=== PATIENT | male | born 1985 | race Asian ===

== ENCOUNTER 2016-10-28 10:51 | Emergency (ER) | payer BC ==
[~2016-10-28] VITALS: Ht 170.2 cm; Wt 78.3 kg
[~2016-10-28 10:51] MED LIST: NTRS PO
[2016-10-28 10:57] VITALS: TEMP 36.2; Ht 170.2 cm; Wt 78.3 kg
[2016-10-28] MEDS ORDERED: ONDANSETRON 4MG OD TAB PO STA (11:36)
[2016-10-28] MEDS ORDERED: LIDOCAINE/EPINEPH/TETRACAINE 1 EA SYR EXT STA (11:36)
[2016-10-28] MEDS ORDERED: NORCO 5/325MG HOME PACK PO ONE (11:45)
[2016-10-28] MEDS ORDERED: HYDROCODONE/ACETAMOPHEN 5/325MG TAB PO ONE (12:00)
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
[2016-10-28] MEDS ORDERED: DIPHTHERIA/TETANUS/PERTUSSIS 0.5 ML SYR/VIAL IM. ONE (12:45)
[2016-10-28] MEDS ORDERED: HYDR-5688 PO (13:29)
[2016-10-28 13:39] VITALS: BP 104/64; PULSE 50; O2SAT 98
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
== END 2016-10-28 13:46 | disposition home or self-care (01) ==
LOC: C.EDB 10:54 → C.EDC 13:46
DX: S81.812A Laceration without foreign body, left lower leg, initial encounter (principal); S09.90XA Unspecified injury of head, initial encounter; V13.0XXA Pedal cycle driver injured in collision with car, pick-up truck or van in nontraffic accident, initial encounter; Z23 Encounter for immunization

== ENCOUNTER → 2016-11-02 | Outpatient (CLI) | payer BC ==
[~2016-11-02] MED LIST changes: +HYDR-5688 PO; -NTRS PO
--- NOTE | 2016-11-02 11:58 | DIAGNOSTIC IMAGING REPORT ---
RIGHT HIP UNILATERAL 2 VIEWS CLINICAL HISTORY: RIGHT HIP PAIN Right pain COMPARISON: None. DISCUSSION: Generalized moderate degenerative change right hip. Moderate sclerosis of the acetabular margin. Mild sclerosis of the femoral head articular services. No evidence for acetabular protrusion. There is no evidence for soft tissue swelling. IMPRESSION: Moderate to rather significant degenerative change right femoral head and associated acetabulum Electronically signed by: Dixon Rahman M.D. 11/02/2016 11:57 AM Dictated Date/Time: 11/02/2016 11:56 AM
== END | disposition home or self-care (01) ==
LOC: C.RAD1850 11:44
PROVIDERS: ATTEND Family Medicine
DX: M67.98 Unspecified disorder of synovium and tendon, other site (principal)

== ENCOUNTER 2017-11-06 17:34 | Emergency (ER) | payer BC, OTHER ==
[~2017-11-06] VITALS: Ht 170.2 cm; Wt 81.9 kg
[2017-11-06 17:50] VITALS: TEMP 36.8; Ht 170.2 cm; Wt 81.9 kg
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
[2017-11-06 19:00] VITALS: BP 114/71; PULSE 62; O2SAT 98
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
== END 2017-11-06 19:00 | disposition home or self-care (01) ==
LOC: C.EDB 17:36 → C.EDD 19:00
DX: S06.0X9A Concussion with loss of consciousness of unspecified duration, initial encounter (principal); X58.XXXA Exposure to other specified factors, initial encounter; Z88.8 Allergy status to other drugs, medicaments and biological substances

== ENCOUNTER 2021-11-27 15:10 | Observation (INO) ==
[2021-11-27 15:50] LABS: Basophils # (auto) 0.03 K/uL (0-0.2); Basophils % (auto) 0.6 %; Eosinophils # (auto) 0.09 K/uL (0-0.5); Eosinophils % (auto) 1.9 %; Hematocrit (blood only) 42.6 % (42-52); Hemoglobin 15.2 g/dL (14.0-18.0); Immature Granulocytes # (auto) 0.01 K/uL (0.00-0.02); Immature Granulocytes % (auto) 0.2 %; Lymphocytes # (auto) 1.45 K/uL (1.2-3.4); Lymphocytes % (auto) 30.8 %; Mean Corpuscular Hemoglobin 31.9 pg (25-34); Mean Corpuscular Hgb Conc 35.7 g/dL (32-36); Mean Corpuscular Volume 89.5 fL (80-100); Mean Platelet Volume 9.7 fL (7.4-10.4); Monocytes # (auto) 0.33 K/uL (0.11-0.59); Neutrophils % (auto) 59.5 %; Platelet Count 237 K/uL (130-400); RDW Coefficient of Variation 12.5 % (11.5-14.5); RDW Standard Deviation 40.9 fL (36.4-46.3); Red Blood Count 4.76 M/uL (4.7-6.1); White Blood Count 4.71 K/uL (4.8-10.8)
[2021-11-27 15:54] LABS: iSTAT Creatinine 0.8 mg/dl (0.6-1.3); iSTAT Hemoglobin 15.3 g/dl (14.0-18.0); iSTAT Ionized Calcium 1.21 mmol/l (1.12-1.32); iSTAT Potassium 3.5 mmol/L (3.3-5.0)
--- NOTE | 2021-11-27 16:04 | Emergency Department Note ---
History of Present Illness General Chief Complaint: Referred by Doctor Stated Complaint: REF BY DOC TO BE REEVALUATED FROM APPENDACITIS Time Seen by Provider: 11/27/21 15:15 History of Present Illness Provider Complaint: abdominal pain Onset (ago): 2 day(s) Pain Consistency: intermittent Location: RLQ Migration to: no migration Severity: mild Maximum Pain Intensity: 2 Current Pain Intensity: 2 Quality: + cramping, + stabbing, + aching, + fullness, + sharp and + dull Relieved By: + nothing Exacerbated By: + nothing Context: no foreign travel, no possible food poisoning, no sick contacts, no recent antibiotic use, no recent surgery/procedure or no recent injury Associated Symptoms: + nausea; no vomiting, no diarrhea, no fever, no chills, no constipation, no dysuria, no hematemesis, no hematochezia, no melena, no hematuria, no anorexia, no syncope, no headache, no neck pain, no back pain, no chest pain, no weakness, no breathing difficulty and no numbness Home Medications Medication Instructions Recorded Confirmed Type amoxicillin 875 mg-potassium 1 tab PO BID 7 Days #14 tab 11/22/21 Rx clavulanate 125 mg tablet vitamin B complex 1 tab PO DAILY 11/22/21 11/22/21 History Allergies Allergy/AdvReac Type Severity Reaction Status Date / Time prednisone AdvReac Severe phycosis Verified 11/22/21 16:31 lactose AdvReac Intermediate GENERALLY Verified 11/22/21 16:32 DON'T FEEL WELL AT ALL, GI UPSET Past Med/Surg History Medical History No significant past medical history Surgical History No significant past surgical history Social History Smoking Status: Never smoker Preferred Language: Urdu marital status: current occupational status: employed Feels Safe at Home: Yes Review of Systems A total of 10 systems reviewed and were otherwise negative Physical Exam Vital Signs: Vital Signs - 24 hr 11/27/21 15:12 Temperature 36.9 C Temperature Source Oral Pulse Rate 60 Respiratory Rate 18 Blood Pressure 156/81 H Blood Pressure Irina n 106 Pulse Oximetry 97 Oxygen Delivery Me thod Room Air Sepsis Recent Feve r Within 48 Hours No Sepsis New/Unexpla ined Change in Men bhavik Status No Sepsis Action Take n by Nursing No Action Required Physical Exam: Physical Exam GENERAL: He is oriented to person, place, and time. He appears well-developed and well-nourished. He does not appear distressed. HENT: Exam performed. - Head: Normocephalic and atraumatic. - Right Ear: External ear normal. No mastoid tenderness. - Left Ear: External ear normal. No mastoid tenderness. - Mouth/Throat: The oropharynx is clear and moist. No trismus in the jaw. No dental abscesses or uvula swelling. No oropharyngeal exudate or tonsillar abscesses. EYES: Conjunctivae and EOM are normal. Pupils are equal, round, and reactive to light. Right eye exhibits no discharge. Left eye exhibits no discharge. No scleral icterus. NECK: Normal range of motion. Neck supple. No JVD present. No spinous process tenderness present. No carotid bruit present. No rigidity. No tracheal deviation and normal range of motion present. No Brudzinski's sign and no Kernig's sign noted. CV: Normal rate, regular rhythm, normal heart sounds and intact distal pulses. There is no peripheral edema. Palpable radial pulses bue. PULM/CHEST: Effort normal and breath sounds normal. No respiratory distress. No stridor. He has no wheezes. He has no rales. - Chest Wall: He exhibits no tenderness. ABD: The abdomen is soft. Bowel sounds are normal. He has no distension. No mass is present. There is tenderness to palpation of the right lower quadrant There is no rebound, no guarding, no Waller's sign and Rovsig negative. MUSC/SKEL: Normal range of motion. There is no peripheral edema, tenderness or deformity. LYMPH: No cervical adenopathy. NEURO: He is alert and oriented to person, place, and time. He has normal strength. No cranial nerve deficit or sensory deficit. Coordination and gait normal. GCS eye subscore is 4. GCS verbal subscore is 5. GCS motor subscore is 6. Cerebellar tests wnl. SKIN: Skin is warm and dry. He is not diaphoretic. PSYCH: He has a normal mood and affect. Behavior is normal. Judgment and thought content normal. Course Course 151: The patient was evaluated in room C6. A complete history and physical exam was performed Cardiac monitoring: An order was placed for continuous cardiac monitoring. The monitor shows a rate of 60 with sinus rhythm EMR reviewed. Patient was seen in the emergency department 5 days ago. On that date he had an outpatient CT scan done at [facility] which showed appendicitis. Patient was evaluated by general surgery Abad CASTREJON for Dr. Brown and cleared for discharge. 1555: Vital signs stable. Discussed the case with Brandee Nguyen on-call CASH for Dr. Ortiz. They recommend lab work as well as CT of the abdomen with oral and IV contrast and states he will be down to evaluate the patient after CT is completed. 1639: Labs within normal limits. CT of the abdomen pending and scheduled for 1744. Case signed out to Dr. Carrington. Medical Decision Making Laboratory Data Result diagrams: 11/27/21 15:26 11/27/21 15:26 Lab Results 11/27/21 11/27/21 11/27/21 Range/Units 15:26 15:26 15:26 WBC 4.71 L (4.8-10.8) K/uL RBC 4.76 (4.7-6.1) M/uL Hgb 15.2 (14.0-18.0) g/dL POC Hgb (14.0-18.0) g/dl Hct 42.6 (42-52) % POC Hct (42-52) % MCV 89.5 (80-100) fL MCH 31.9 (25-34) pg MCHC 35.7 (32-36) g/dL RDW Std Deviation 40.9 (36.4-46.3) fL RDW Coeff of Kaylynn 12.5 (11.5-14.5) % Plt Count 237 (130-400) K/uL MPV 9.7 (7.4-10.4) fL Immature Gran % (Auto) 0.2 % Neut % (Auto) 59.5 % Lymph % (Auto) 30.8 % [place] % (Auto) 7.0 % Eos % (Auto) 1.9 % Baso % (Auto) 0.6 % Neut # (Auto) 2.80 (1.4-6.5) K/uL Lymph # (Auto) 1.45 (1.2-3.4) K/uL [place] # (Auto) 0.33 (0.11-0.59) K/uL Eos # (Auto) 0.09 (0-0.5) K/uL Baso # (Auto) 0.03 (0-0.2) K/uL Immature Gran # (Auto) 0.01 (0.00-0.02) K/uL POC Sodium (135-144) mmol/L Sodium 138 (136-145) mmol/L POC Potassium (3.3-5.0) mmol/L Potassium 3.5 (3.5-5.1) mmol/L POC Chloride (101-112) mmol/L Chloride 103 (98-107) mmol/L Carbon Dioxide 26 (21-32) mmol/L POC Total CO2 (24-31) mmol/L Anion Gap 9 (3-11) POC Anion Gap (16-25) mmol/L POC BUN (7-18) mg/dl BUN 9 (6-23) mg/dl Creatinine 0.85 (0.6-1.4) mg/dl POC Creatinine (0.6-1.3) mg/dl Est Cr Clr Drug Dosing 123.4 ml/min Est GFR ( Amer) 128.1 ml/min Est GFR (Non-Af Amer) 110.5 ml/min BUN/Creatinine Ratio 10.6 (10-20) Glucose 88 (70-99(Fasting)) mg/dl POC Glucose (other) (70-99) mg/dl Calcium 9.3 (8.5-10.1) mg/dl POC Ioniz Calcium Angela (1.12-1.32) mmol/l Total Bilirubin 0.6 (0.2-1.0) mg/dl Direct Bilirubin 0.1 (0-0.2) mg/dl AST 18 (13-39) U/L ALT 24 (7-52) U/L Alkaline Phosphatase 42 (34-104) U/L Total Protein 7.1 (6.0-8.3) gm/dl Albumin 4.3 (3.4-5.0) gm/dl Lipase 26 Cancelled (11-82) U/L SARS-CoV-2, RNA, NAAT (NEGATIVE) 11/27/21 11/27/21 Range/Units 15:36 15:36 WBC (4.8-10.8) K/uL RBC (4.7-6.1) M/uL Hgb (14.0-18.0) g/dL POC Hgb 15.3 (14.0-18.0) g/dl Hct (42-52) % POC Hct 45 (42-52) % MCV (80-100) fL MCH (25-34) pg MCHC (32-36) g/dL RDW Std Deviation (36.4-46.3) fL RDW Coeff of Kaylynn (11.5-14.5) % Plt Count (130-400) K/uL MPV (7.4-10.4) fL Immature Gran % (Auto) % Neut % (Auto) % Lymph % (Auto) % [place] % (Auto) % Eos % (Auto) % Baso % (Auto) % Neut # (Auto) (1.4-6.5) K/uL Lymph # (Auto) (1.2-3.4) K/uL [place] # (Auto) (0.11-0.59) K/uL Eos # (Auto) (0-0.5) K/uL Baso # (Auto) (0-0.2) K/uL Immature Gran # (Auto) (0.00-0.02) K/uL POC Sodium 140 (135-144) mmol/L Sodium (136-145) mmol/L POC Potassium 3.5 (3.3-5.0) mmol/L Potassium (3.5-5.1) mmol/L POC Chloride 100 L (101-112) mmol/L Chloride (98-107) mmol/L Carbon Dioxide (21-32) mmol/L POC Total CO2 25 (24-31) mmol/L Anion Gap (3-11) POC Anion Gap 20.0 (16-25) mmol/L POC BUN 9 (7-18) mg/dl BUN (6-23) mg/dl Creatinine (0.6-1.4) mg/dl POC Creatinine 0.8 (0.6-1.3) mg/dl Est Cr Clr Drug Dosing ml/min Est GFR ( Amer) ml/min Est GFR (Non-Af Amer) ml/min BUN/Creatinine Ratio (10-20) Glucose (70-99(Fasting)) mg/dl POC Glucose (other) 91 (70-99) mg/dl Calcium (8.5-10.1) mg/dl POC Ioniz Calcium Angela 1.21 (1.12-1.32) mmol/l Total Bilirubin (0.2-1.0) mg/dl Direct Bilirubin (0-0.2) mg/dl AST (13-39) U/L ALT (7-52) U/L Alkaline Phosphatase (34-104) U/L Total Protein (6.0-8.3) gm/dl Albumin (3.4-5.0) gm/dl Lipase (11-82) U/L SARS-CoV-2, RNA, NAAT NEGATIVE (NEGATIVE) MDM Narrative 1515: The patient was evaluated in room C6. A complete history and physical exam was performed Cardiac monitoring: An order was placed for continuous cardiac monitoring. The monitor shows a rate of 60 with sinus rhythm EMR reviewed. Patient was seen in the emergency department 5 days ago. On that date he had an outpatient CT scan done at [facility] which showed appendicitis. Patient was evaluated by general surgery Bill CASH for Dr. Brown and cleared for discharge. 1555: Vital signs stable. Discussed the case with Brandee Nguyen on-call MANUEL-C for Dr. Ortiz. They recommend lab work as well as CT of the abdomen with oral and IV contrast and states he will be down to evaluate the patient after CT is completed. 1639: Labs within normal limits. CT of the abdomen pending and scheduled for 174. Case signed out to Dr. Carrington. Impression & Plan Abdominal pain Discharge Plan Visit Data Chief Complaint: Referred by Doctor Stated Complaint: REF BY DOC TO BE REEVALUATED FROM APPENDACITIS ED Provider: Arias Carrington Discharge Problem: Abdominal pain Patient Disposition: Still a Patient Forms Stand Alone Forms: My Snappy shuttle Prescriptions Prescriptions: No Action vitamin B complex Tablet 1 tab PO DAILY RF: 0 amoxicillin-pot clavulanate 875-125 mg tablet 1 tab PO BID 7 Days Qty: 14 RF: 0 Referrals Referrals: Dirk Tucker DO [Primary Care Provider] -
[2021-11-27 16:14] LABS: Albumin Level 4.3 gm/dl (3.4-5.0); BUN Creatinine Ratio 10.6 (10-20); Bilirubin Direct 0.1 mg/dl (0-0.2); Bilirubin,Total 0.6 mg/dl (0.2-1.0); Calcium 9.3 mg/dl (8.5-10.1); Creatinine Clr Calc Pharmacy 123.4 ml/min; Est GFR (African American) 128.1 ml/min; Est GFR (Non-African American) 110.5 ml/min; Potassium 3.5 mmol/L (3.5-5.1); Total Protein 7.1 gm/dl (6.0-8.3)
--- NOTE | 2021-11-27 16:41 | Emergency Department Note ---
ED Visit Note ED Physician Sign Out Note: Pleasant 36-year-old gentleman arrives for evaluation of abdominal pain earlier in the shift. Patient with on and off belly pain and not feeling well for the last few weeks with periodic right lower quadrant pain. Several days ago he had a CT as an outpatient which showed acute appendicitis. He was evaluated general surgery here in the ER few days ago and plan was to see how he responded to oral antibiotics. Patient notes that due to worsening symptoms he was advised to come back to the ER today. Dr. Rizo initially evaluated him and discussed with general surgery requested repeat CT with oral & IV contrast. She was signed out to me pending this study. On repeat evaluations patient stable comfortable and tolerating this well. He is not in significant pain and actually states he feels pretty comfortable. CT was read by Dr. Busby radiology who called me to say that there was acute appendicitis without perforation. I discussed this at length with Dr. Ortiz. Given the patient's symptoms and no significant peritonitis at this time we will start him on IV antibiotics and he will be hospitalized with plan to go to the OR at some point overnight or in the morning. I think this is reasonable as patient is not septic he has normal white count and is afebrile and he appears quite well. He is not requiring any pain medications. Patient is comfortable with this plan as well and was hospitalized by Dr. Ortiz. Arias Carrington MD : Abdominal pain Qualifiers: Abdominal location: right lower quadrant Qualified Code(s): R10.31 - Right lower quadrant pain
[2021-11-27] MEDS ORDERED: OPTIRAY 320 100ml IV ONE (18:19)
--- NOTE | 2021-11-27 18:36 | CT Scan Report ---
CT abd pelvis oral and IV con CLINICAL HISTORY: Right lower quadrant abdominal pain. COMPARISON STUDY: No previous studies for comparison. CT DOSE: 323.29 mGy.cm TECHNIQUE: Standard CT of the Abdomen and Pelvis was performed with IV contrast. A dose lowering althea hnique was utilized adhering to the principles of ALARA. Contrast Volume: Optiray 320, 94 ml. The patient received oral contrast. FINDINGS: Lung base: The lung bases are clear. Abdominal cavity: There is no evidence for abdominal mass, adenopathy or ascites. Liver: There is homogeneous attenuation of the liver parenchyma. There is no evidence for enhancing m ass lesion. Spleen: There is homogeneous attenuation of the splenic parenchyma. There is no enhancing mass lesion . Pancreas: There is homogeneous attenuation of the pancreatic parenchyma. There is no evidence for mas s lesion or peripancreatic fluid collection. Gall Bladder: The gallbladder is well distended with no evidence for intraluminal calculi, wall thick ening or pericholecystic edema. Adrenal glands: The adrenal glands are normal in size and attenuation. There is no evidence for enhan cing mass lesion. Kidneys: There is homogeneous attenuation of the renal parenchyma bilaterally. There is no evidence f or renal calculus or hydronephrosis. There is no evidence for enhancing mass. Bowel: Oral contrast present within the stomach, throughout the small bowel extends into the cecum. A normal appendix is visualized in the right lower quadrant which does not fill with contrast. It is n ot dilated with no periappendiceal inflammatory change. The bowel loops are normally placed within the abdomen and pelvis without evidence for dilatation or obstruction. There is no evidence for mass lesion. There are no inflammatory changes present. There is no evidence for free air. Bladder: The bladder is within normal limits with no evidence for focal mass, calculus or diverticulu m. : There is no evidence for pelvic mass or adenopathy. There is no evidence for pelvic ascites. Vasculature: There is no evidence for aneurysmal dilatation of the abdominal aorta. Osseous structures: There is no acute osseous pathology. IMPRESSION: 1. No acute intra-abdominal or pelvic abnormality. 2. Evidence for normal appendix. ACT 112: Negative or not required by law. Electronically signed by: Don Thompson M.D. 11/27/2021 6:34 PM
[2021-11-27] MEDS ORDERED: cefOXitin 2,000 MG/60 ML BAG IV STA (18:45)
[2021-11-27] MEDS ORDERED: HYDROmorphone INJ 0.5 MG/0.5 ML SYR IV PRN ×2 (20:12)
[2021-11-27] MEDS ORDERED: ONDANSETRON INJ 2 MG/ML 2 ML VIAL IV PRN (20:12)
[2021-11-27] MEDS: AMPICILLIN/SULBACTAM SOD 1,500 MG in 0.9 % SODIUM CHLORIDE 100 ML IV SCH (20:36)
[2021-11-27] MEDS: LACTATED RINGER'S 1,000 ML IV SCH (21:14)
[2021-11-28] MEDS: AMPICILLIN/SULBACTAM SOD 1,500 MG in 0.9 % SODIUM CHLORIDE 100 ML IV SCH ×4 (02:24→20:58)
[2021-11-28] MEDS: LACTATED RINGER'S 1,000 ML IV SCH ×4 (04:58→22:30)
--- NOTE | 2021-11-28 07:02 | Anesthesiology Consultation ---
Date of Service November 28, 2021 Assessment & Plan (1) Encounter for pre-operative examination: Chart Review Chart Review: Acceptable Risk for Surgery and Patient NOT seen in Pre Admission Testing Consults Requested none History Height/Weight Height: 5 ft 7 in Weight: 83.5 kg Allergies Allergy/AdvReac Type Severity Reaction Status Date / Time prednisone AdvReac Severe phycosis Verified 11/27/21 16:44 lactose AdvReac Intermediate GENERALLY Verified 11/27/21 16:44 DON'T FEEL WELL AT ALL, GI UPSET Medications Home Medications Medication Instructions Recorded Confirmed Last Taken amoxicillin 875 mg-potassium 1 tab PO BID 7 Days #14 tab 11/22/21 11/27/21 11/27/21 08:00 clavulanate 125 mg tablet vitamin B complex 1 tab PO DAILY 11/22/21 11/22/21 11/22/21 Active Medications Generic Name Dose Route Start Last Admin Trade Name Freq PRN Reason Stop Dose Admin Ampicillin Sodium/Sulbactam 104 mls @ 200 mls/hr 11/27/21 21:00 11/28/21 03:01 Sodium 1,500 mg/ Sodium IV 12/07/21 20:59 Infused Chloride Q6H CANDICE Infusion Protocol Lactated Ringer's 1,000 mls @ 125 mls/hr 11/27/21 20:12 11/28/21 04:58 Lr IV 12/27/21 20:11 125 mls/hr .Q8H CANDICE Administration Past Medical History Medical History No significant past medical history Past Surgical History Surgical History No significant past surgical history Social History Smoking Status: Never smoker Do You Dip or Chew Tobacco: No Hx Alcohol Use: Yes alcohol intake frequency: a few times a month Hx Substance Use: No Physical Exam Vital Signs Last Vital Signs Temp 98.2 F 11/28/21 06:51 Pulse 62 11/28/21 06:51 Resp 18 11/28/21 06:51 BP 104/68 11/28/21 06:51 Pulse Ox 97 11/28/21 06:51 Testing Laboratory Results 11/27/21 15:26 11/27/21 15:26
[2021-11-28] MEDS ORDERED: LIDOCAINE 2% 2 ML VIAL/AMP(20MG/ML) INFIL ONE (07:09)
[2021-11-28] MEDS ORDERED: ROCURONIUM BROMIDE 10 MG/ML 5 ML VIAL IV ONE (07:09)
[2021-11-28] MEDS ORDERED: PROPOFOL IV EMULSION 10 MG/ML 20 ML VIAL IV ONE (07:09)
[2021-11-28] MEDS ORDERED: ONDANSETRON INJ 2 MG/ML 2 ML VIAL ONE ×2 (07:09→13:31)
[2021-11-28] MEDS ORDERED: fentaNYL citrate 100 MCG/2 ML VIAL ONE ×3 (07:09→13:32)
[2021-11-28] MEDS ORDERED: DEXAMETHASONE SOD INJ 4 MG/ML VIAL ONE (07:09)
[2021-11-28] MEDS ORDERED: ACETAMINOPHEN 1000 MG/100 ML IV IV ONE (07:22)
--- NOTE | 2021-11-28 07:36 | History & Physical Report ---
Date of Service November 28, 2021 Assessment & Plan (1) Appendicitis: Plan: Appears as though conservative management alone. We discussed his options of changing the antibiotics versus proceeding with laparoscopic appendectomy. I suggested surgery would probably be the best course. We discussed risks which include bleeding, infection, injury to another organ, DVT, PE, [place], CVA etc. Following our discussion I answered all of his questions. He agrees and we will proceed today with laparoscopic appendectomy. Appendicitis type: unspecified Qualified Code(s): K37 - Unspecified appendicitis Admission and Anticipated Discharge Date Admission Date: November 27, 2021 History of Present Illness Primary Care Provider: Dirk Tucker DO 36-year-old male who was seen by one of my partners Dr. Brown for early mild appendicitis. He was initially started on antibiotics and treated as an outpatient yesterday he called with several day history of abdominal discomfort nausea etc. Repeat CT scan yesterday in the emergency room as per Dr. Busby suggest persistent acute appendicitis. He was admitted for comfort measures antibiotics and planned appendectomy. Allergies Allergy/AdvReac Type Severity Reaction Status Date / Time prednisone AdvReac Severe phycosis Verified 11/27/21 16:44 lactose AdvReac Intermediate GENERALLY Verified 11/27/21 16:44 DON'T FEEL WELL AT ALL, GI UPSET Home Medications Medication Instructions Recorded Confirmed Type amoxicillin 875 mg-potassium 1 tab PO BID 7 Days #14 tab 11/22/21 11/27/21 Rx clavulanate 125 mg tablet vitamin B complex 1 tab PO DAILY 11/22/21 11/22/21 History Past Med/Surg History Medical History No significant past medical history Surgical History No significant past surgical history Social History Smoking Status: Never smoker Second Hand Exposure: No; Do You Dip or Chew Tobacco: No; Hx Alcohol Use: Yes Hx Substance Use: No Preferred Language: Hungarian Communication Ability: Effective Insurance Inspector Required: No Beliefs That Will Affect Care: None marital status: Current Living Situation: Spouse current occupational status: employed Feels Safe at Home: Yes Safety Concerns: Feels Safe At This Time Assistive Devices: Glasses Review of Systems All systems reviewed & are unremarkable except as noted in HPI & below Physical Exam Constitutional: WD/WN, vitals as above no acute distress and not ill appearing Eyes: PERRL, conjunctivae normal, anicteric sclerae EOM intact bilaterally ENMT: external ear and nose normal, oropharynx normal Ears: no hearing impairment Neck: trachea midline, no thyromegaly Respiratory: normal respiratory effort; no respiratory distress and does not use accessory muscles Cardiovascular: Rate/Rhythm: regular rate and regular rhythm Gastrointestinal (Abdomen): Soft. Mild distention. Positive right lower quadrant tenderness. No evidence of peritonitis. Skin: no rashes, warm and dry Psychiatric: Orientation: alert, oriented x 3 and cooperative Results & Data ([facility]) Vital Signs (Past 12 Hours) Vital Signs Temp Pulse Resp BP Pulse Ox 11/28/21 06:51 36.8 C 62 18 104/68 97 11/27/21 22:18 36.5 C 51 L 16 128/76 97 11/27/21 20:12 37.0 C 63 16 134/90 95 11/27/21 19:50 72 16 121/80 99 Code Status & VTE Plan VTE Prophylaxis Plan VTE Prophylaxis will be ordered: Yes
[2021-11-28] MEDS ORDERED: BUPIVACAINE 0.5 % 5 MG/1 ML MPF 30ML VIAL ONE (12:13)
[2021-11-28] MEDS ORDERED: EPINEPHrine INJ 1 MG/ML AMP ONE (12:13)
[2021-11-28] MEDS ORDERED: ONDANSETRON INJ 2 MG/ML 2 ML VIAL IV PRN (12:38)
[2021-11-28] MEDS ORDERED: ePHEDrine sulfate 50 MG/ML AMP IV PRN (12:38)
[2021-11-28] MEDS ORDERED: ATROPINE SULFATE 0.1 MG/ML 10ML SYR IV PRN (12:38)
--- NOTE | 2021-11-28 13:13 | Operative Report ---
PG Post Operative Report Pre & Post Diagnosis Operation Date: 11/28/21 09:00 Pre-Op Diagnosis: Appendicitis Post-Op Diagnosis: Appendicitis I identified the patient and participated in the time-out.: Yes Procedure Operation Date: 11/28/21 09:00 Actual Procedures p Laparoscopic Appendectomy(Not Applicable) - Gael Ortiz DO Surgeon Gael Ortiz DO Hair Baler joey Haney Estimated Blood Loss 5 Findings Consistent with Post-Op Diagnosis Specimens appendix Description of Procedure After informed consent was obtained the patient was taken to the operating room and placed in supine position. After successful intubation a Kelley catheter was placed and the left arm was tucked. I began by making a periumbilical inc ision with an 11 blade scalpel and carried this down through the soft tissue using electrocautery. The anterior rectus fascia was opened using electrocautery and 2 #0 Vicryl stay sutures were placed. The peritoneum was elevated using hemostats and incised under direct vision using a Metzenbaum scissor. A finger sweep was performed. A 12 mm Yan trocar was placed and the abdomen was insufflated to 18 mmHg. A laparoscope was inserted and the abdomen was examined in 360. A suprapubic 5 mm port and a left lower quadrant 12 mm port were placed under direct vision. The patient was air planed to the left as well as placed in a slight Trendelenburg position. We began by looking in the right lower quadrant. We were able to readily identify the appendix and it was mildly grossly inflamed. It had not perforated. There is a small amount of cloudy fluid in the right lower quadrant and the pelvis. We immediately irrigated and suctioned this out. I was able to use primarily blunt dissection to pull the appendix away from the right lower quadrant sidewall. I began by using a right angle to make a small window in the mesentery of the appendix. I was then able to use a CARMEN brown cartridge stapler to transect first the mesentery of the appendix and then the appendix itself at its base with the cecum. It was then placed into an Endo Catch bag and removed from the camera port site. We thoroughly irrigated the right lower quadrant as well as the pelvis. There was adequate hemostasis. I ran the small bowel backwards from the terminal ileum for about 6 feet all of which was normal. All the peritoneal surfaces were normal. Small/ large bowel, liver, stomach etc. all appeared grossly normal. We did a final irrigation and then removed all the trochars and desufflated the abdomen. The fascia of the camera port as well as the left lower quadrant were closed using 0 Vicryl in [id number] fashion. Wounds were all irrigated and closed using 4-0 Monocryl. Marcaine was injected around them for postoperative analgesia and skin glue used as a dressing. The patient was awakened extubated and transferred to recovery in stable condition. My physician's marketing support assistant was present through the entire case. he assisted with prepping the patient and helped with exposure for port placement, helped run the camera and helped with fascial/wound closure at the end of the procedure as well as dressing placement. I attest to the content of the Intraoperative Record and any orders documented therein. Any exceptions are noted below. I attest to the content of the Intraoperative Record and any orders documented therein. Any exceptions are noted below.
[2021-11-28] MEDS ORDERED: KETOROLAC 30 MG/ML VIAL ONE (13:16)
[2021-11-28] MEDS: fentaNYL citrate 100 MCG/2 ML VIAL IV PRN ×2 (13:34→13:50)
--- NOTE | 2021-11-28 14:11 | Anesthesiology Progress Note ---
Date of Service November 28, 2021 Anesthesia Post Procedure Vital Signs Vital Signs: Temp Pulse Pulse Pulse Resp BP BP 11/28/21 14:00 62 15 90/38 L 11/28/21 13:50 62 12 88/34 L 11/28/21 13:40 55 L 17 112/57 L 11/28/21 13:30 56 L 16 113/67 11/28/21 13:22 97.0 F L 59 L 12 116/52 L 11/28/21 12:02 98.2 F 65 16 11/28/21 06:51 98.2 F 62 18 11/27/21 22:18 97.7 F 51 L 16 11/27/21 20:12 98.6 F 63 16 11/27/21 19:50 72 16 11/27/21 19:04 60 16 11/27/21 17:05 80 18 11/27/21 15:12 98.4 F 60 18 156/81 H BP Pulse Ox 11/28/21 14:00 94 11/28/21 13:50 97 11/28/21 13:40 98 11/28/21 13:30 100 11/28/21 13:22 99 11/28/21 12:02 119/72 97 11/28/21 06:51 104/68 97 11/27/21 22:18 128/76 97 11/27/21 20:12 134/90 95 11/27/21 19:50 121/80 99 11/27/21 19:04 130/90 100 11/27/21 17:05 139/83 98 11/27/21 15:12 97 Pain Intensity Right Lower Abdomen: Pain Intensity: 3 Abdomen: Pain Intensity: 5 Transfer of Care Handoff Completed per policy Notes Mental Status: alert / awake / arousable and participated in evaluation Patient Amnestic to Procedure: Yes Nausea / Vomiting: adequately controlled Pain: adequately controlled Airway Patency, RR, SpO2: stable & adequate BP & HR: stable & adequate Hydration State: stable & adequate Anesthetic Complications: no major complications apparent and Pt Satisfied with anesthetic care
[2021-11-28] MEDS ORDERED: HYDROCODONE/ACETAMOPHEN 5/325MG TAB PO PRN ×2 (14:27)
[2021-11-28] MEDS ORDERED: IBUPROFEN 600 MG TAB PO PRN (22:19)
[2021-11-29] MEDS: AMPICILLIN/SULBACTAM SOD 1,500 MG in 0.9 % SODIUM CHLORIDE 100 ML IV SCH ×2 (02:57→08:31)
[2021-11-29] MEDS: LACTATED RINGER'S 1,000 ML IV SCH (06:39)
--- NOTE | 2021-11-29 09:44 | Surgery Progress Note ---
Date of Service November 29, 2021 Assessment & Plan (1) Appendicitis: Plan: POD 1 lap appy ok for discharge seen with Dr. Ortiz Admission and Anticipated Discharge Date Admission Date: November 27, 2021 Subjective tolerating diet, pain control better Physical Exam Gastrointestinal (Abdomen): Inspection/Auscultation: abdomen not distended Percussion/Palpation: abdomen soft Results & Data ([facility]) Vital Signs (Past 12 Hours) Vital Signs Temp Pulse Resp BP Pulse Ox 11/29/21 07:30 36.5 C 63 16 104/62 99 11/29/21 03:19 36.9 C 82 16 93/51 L 97 11/28/21 22:06 36.9 C 85 16 100/54 L 97 PG Care Time/CCT Total # of Minutes Spent Total Time Spent with Patient: Total time spent is greater than 50% in coordination of care (as documented) at patient's floor/unit and/or counseling patient: Coding Level of Care Code None Diagnoses Appendicitis K37 Appendicitis type: unspecified (1) Appendicitis Appendicitis type: unspecified Qualified Code(s): K37 - Unspecified appendicitis
--- NOTE | 2021-12-01 09:49 | Discharge Summary ---
Date of Service November 29, 2021 Admission HPI Per Admitting Provider 36-year-old male who was seen by one of my partners Dr. Brown for early mild appendicitis. He was initially started on antibiotics and treated as an outpatient yesterday he called with several day history of abdominal discomfort nausea etc. Repeat CT scan yesterday in the emergency room as per Dr. Busby suggest persistent acute appendicitis. He was admitted for comfort measures antibiotics and planned appendectomy. Principal Diagnosis Acute appndicitis Discharge Exam Constitutional WD/WN, vitals as above Gastrointestinal (Abdomen) Inspection/Auscultation: + abdominal surgical incision (clean, dry); abdomen not distended Percussion/Palpation: abdomen soft Discharge Data Allergies Allergy/AdvReac Type Severity Reaction Status Date / Time prednisone AdvReac Severe phycosis Verified 11/27/21 16:44 lactose AdvReac Intermediate GENERALLY Verified 11/27/21 16:44 DON'T FEEL WELL AT ALL, GI UPSET Consultations 11/27/21 18:45 Consult General Surgery Stat 11/27/21 19:01 ED Decision to Admit Stat Procedures Performed Operation Date: 11/28/21 09:00 Actual Procedures p Laparoscopic Appendectomy(Not Applicable) - Gael Ortiz, DO Ordered Studies 11/27/21 15:38 CT abd pelvis oral and IV con Stat Hospital Course (1) Appendicitis: 36 y/o male presented to ED with increasing abdominal pain. He was seen 5 days prior and treated with antibiotics for questionable appendicitis which was suggested by outpatient CT but had limited clinical findings. Given his return of symptoms he was admitted to the surgical service overnight and taken to the operating room in the morning for laparoscopic appendectomy. He was returned to the surgical floor and continued to require IV analgesics during the day. On POD 1 he was tolerating diet and oral analgesics and was stable for discharge home. Total Time Total Time Spent Total Time Spent (In Minutes): 15 Discharge Plan Discharge Items Patient Disposition: Home - Self-Care Reason For Visit: APPENDICITIS Discharge Diagnosis: laparoscopic appendectomy Activity: As commented below Lifting: No more than 10 pounds Bathing Comment: ok to shower over skin glue Driving/Machine Use: Resume 3 days after discharge Non-emergency contact: Surgeon Call non-emergency contact if: you have any medication questions, your pain is not controlled, you have a fever, your temperature is above 101.5 and your wound has increased redness Follow-up/Referrals: Gael Ortiz DO [Surgeon] - 12/13/21 10:45 am (Please call to make an appt in approx 2 weeks) Dirk Tucker DO [Primary Care Provider] - Diet: Regular Addtl Attending Provider Instructions: Pending Studies at Discharge: No Stand-Alone Forms: My [facility] [email or web address], Smoking Cessation Medications and DC Order Prescriptions: New hydrocodone-acetaminophen 5-325 mg tablet 1 - 2 tab PO .Q4-6h MDD 6 tabs PRN (Reason: pain, initial therapy) Qty: 15 RF: 0 Continued vitamin B complex Tablet 1 tab PO DAILY RF: 0 Discharge Orders: Discharge Order (Routine); Ordered 11/28/21 Ordered By: Johnnie Haney Admission Data Admit Date/Time: 11/27/21 19:08 Attending Provider: Gael Ortiz Admit Provider: Gael Ortiz Primary Care Provider: Dirk Tucker Other Providers: Gael Ortiz Other Interventions: Discharge Summary Assessment (RN) Last Done: 11/29/21 10:30 Coding Level of Care Code D/C DAY MANAGEMENT <30 MINS Diagnoses Appendicitis K37 Appendicitis type: unspecified
== END 2021-11-29 10:44 | disposition home or self-care (01) ==
LOC: 3N 15:10 → ED 15:10 → 3N 19:52